=== PATIENT | male | born 1935 | race African-American/Black ===

== ENCOUNTER 2021-01-27 10:40 | Outpatient (CLI) | payer MEDICARE, MEDICAID | END 2021-01-27 10:41 | disposition home or self-care (01) | LOC: BICRAD 10:40 | PROVIDERS: ATTEND Specialist | DX: R53.83 Other fatigue (principal) | CPT/HCPCS: 71046 ==

== ENCOUNTER 2022-04-24 13:20 | Inpatient (IN) | payer OTHER, MEDICARE, MEDICAID ==
[2022-04-24] MEDS ORDERED: Morphine 4 MG/ML VIAL ONE (14:33)
[2022-04-24] MEDS ORDERED: Ondansetron PF 4 MG/2 ML Vial ONE (14:33)
[2022-04-24 14:52] LABS: #Eosinphils 0.3 thou/uL (0.0-0.7); #Lymphocytes 1.5 thou/uL (1.20-3.40); #Monocytes 0.5 thou/uL (0.11-0.59); #Neutrophils 3.6 thou/uL (1.40-6.50); %Basophils 0.2 % (0.0-1.0); %Lymphocytes 25.8 % (21.0-51.0); %Monocytes 8.2 % (0.0-10.0); %Neutrophils 60.7 % (42.0-75.0); Hemoglobin 12.6 g/dL (14.0-18.0); Mean Corpuscular HGB CONC 32.2 g/dL (32.0-36.0); Mean Corpuscular Hemoglobin 29.8 pg (27.0-31.0); Mean Corpuscular Volume 92.6 fl (78.0-98.0); Mean Platelet Volume 7.2 fL (7.4-10.4); Platelet Count 203 10x3/uL (130-400); RBC Distribution Width 12.2 % (11.5-14.5); Red Blood Cell (RBC) Count 4.24 mill/uL (4.70-6.10); White Blood Cell (WBC) Count 5.9 10x3/uL (4.8-10.8)
[2022-04-24 15:03] LABS: INR-International Normal Ratio 1.1; Prothrombin Time 14.8 sec (12.0-14.7)
[2022-04-24 15:23] LABS: ALT (SGPT) 22 U/L (8-55); AST (SGOT) 27 U/L (5-34); Albumin 3.9 g/dL (3.4-4.8); Alkaline Phosphatase 50 U/L (40-110); Anion Gap 12 mmol/L (10-20); BUN (Urea Nitrogen) 15 mg/dL (8.4-25.7); Bilirubin, Total 0.5 mg/dL (0.2-1.2); Calc. Creatinine Clearance 0 mL/min (70-130); Calcium 9.2 mg/dL (7.8-10.44); Carbon Dioxide 25 mmol/L (23-31); Chloride 107 mmol/L (98-107); Estimated GFR 85; Globulin 3.5 g/dL (2.4-3.5); Glucose 113 mg/dL (83-110); Lipase 25 U/L (8-78); Potassium 3.7 mmol/L (3.5-5.1); Protein, Total 7.4 g/dL (5.8-8.1); Sodium 140 mmol/L (136-145)
[2022-04-24] MEDS ORDERED: TETANUS, DIPHTHERIA TOX,ADULT (TDVAX) 0.5 ML VIAL IM ONE (15:27)
[2022-04-24] MEDS ORDERED: Ondansetron PF 4 MG/2 ML Vial IVP PRN (15:27)
[2022-04-24] MEDS ORDERED: hydrALAZINE 20 MG/ML VIAL SLOW IVP PRN (15:27)
[2022-04-24] MEDS ORDERED: Sodium Chloride 0.9% 1,000 ML IV SCH (15:30)
[2022-04-24] MEDS ORDERED: Cyclobenzaprine 10 MG TAB PO PRN (15:31)
[2022-04-24] MEDS ORDERED: traMADol HCl 50 MG TAB PO PRN (15:32)
[2022-04-24] MEDS ORDERED: Morphine 4 MG/ML VIAL SLOW IVP PRN (15:34)
[2022-04-24] MEDS ORDERED: Boostrix 0.5 ML (Tdap) VIAL (>/=7 yrs of age) ONE (16:30)
[2022-04-24] MEDS ORDERED: Acetaminophen 650 MG/20.3 ML UDCUP ONE (17:58)
[2022-04-24] MEDS ORDERED: Ketorolac Tromethamine 30 MG/ML VIAL ONE (17:58)
[2022-04-24] MEDS ORDERED: Acetaminophen 325 MG TAB PO SCH (18:00)
[2022-04-24] MEDS ORDERED: traMADol HCl 50 MG TAB PO SCH (18:00)
[2022-04-24] MEDS: Ketorolac Tromethamine 30 MG/ML VIAL IVP SCH ×2 (18:05→23:08)
[2022-04-24] MEDS: Acetaminophen 650 MG/20.3 ML UDCUP PO SCH ×2 (18:05→23:06)
[2022-04-24] MEDS ORDERED: Famotidine/PF 20 mg/2ml Vial ONE (21:00)
[2022-04-24] MEDS: Famotidine/PF 20 mg/2ml Vial SLOW IVP SCH (21:03)
[2022-04-24] MEDS: Senokot S 8.6-50 MG TAB PO SCH (22:31)
[2022-04-25 02:07] VITALS: BMI 18.9
[2022-04-25] MEDS: Acetaminophen 650 MG/20.3 ML UDCUP PO SCH ×3 (04:32→17:59)
[2022-04-25] MEDS: Ketorolac Tromethamine 30 MG/ML VIAL IVP SCH ×3 (04:35→17:59)
[2022-04-25 04:45] LABS: SARS-CoV-2 NAA Rapid Test Not Detected (NotDetected)
[2022-04-25 06:40] LABS: #Eosinphils 0.1 thou/uL (0.0-0.7); #Monocytes 0.5 thou/uL (0.11-0.59); #Neutrophils 4.3 thou/uL (1.40-6.50); %Eosinophils 1.1 % (0.0-10.0); %Lymphocytes 16.4 % (21.0-51.0); %Monocytes 8.4 % (0.0-10.0); %Neutrophils 74.1 % (42.0-75.0); Hemoglobin 11.4 g/dL (14.0-18.0); Mean Corpuscular HGB CONC 32.4 g/dL (32.0-36.0); Mean Corpuscular Hemoglobin 29.7 pg (27.0-31.0); Mean Corpuscular Volume 91.5 fl (78.0-98.0); Mean Platelet Volume 7.2 fL (7.4-10.4); Platelet Count 181 10x3/uL (130-400); RBC Distribution Width 12.2 % (11.5-14.5); Red Blood Cell (RBC) Count 3.84 mill/uL (4.70-6.10); White Blood Cell (WBC) Count 5.8 10x3/uL (4.8-10.8)
[2022-04-25 07:01] LABS: Anion Gap 13 mmol/L (10-20); BUN (Urea Nitrogen) 18 mg/dL (8.4-25.7); Calc. Creatinine Clearance 47 mL/min (70-130); Calcium 8.6 mg/dL (7.8-10.44); Carbon Dioxide 21 mmol/L (23-31); Chloride 110 mmol/L (98-107); Estimated GFR 86; Glucose 104 mg/dL (83-110); Potassium 3.8 mmol/L (3.5-5.1); Sodium 140 mmol/L (136-145)
[2022-04-25] MEDS: Famotidine/PF 20 mg/2ml Vial SLOW IVP SCH ×2 (08:06→20:04)
[2022-04-25] MEDS: Polyethylene Glycol 3350 17 GM Packet PO SCH (08:07)
[2022-04-25] MEDS: Saccharomyces boulardii 250 MG CAP PO SCH (08:07)
[2022-04-25] MEDS: Senokot S 8.6-50 MG TAB PO SCH ×2 (08:07→20:06)
[2022-04-25] MEDS ORDERED: FLU VACC QS2022-23(65YR UP)/PF 240 MCG/0.7 ML SYRINGE IM ONE (09:00)
[2022-04-25] MEDS ORDERED: Sodium Chloride 0.9% 1,000 ML IV SCH (10:45)
[2022-04-25] MEDS ORDERED: CEFAZOLIN 2 GM in Sodium Chloride 0.9% 100 ML IVPB SCH (13:00)
[2022-04-25] MEDS ORDERED: CEFAZOLIN 2 GM VIAL ONE (14:42)
[2022-04-25] MEDS ORDERED: Sodium Chloride 0.9% 100 ML ONE (14:42)
[2022-04-25] MEDS ORDERED: Fentanyl 100 MCG/2 ML VIAL ONE (16:47)
[2022-04-25] MEDS ORDERED: Lidocaine 1% PF 5 ML VIAL ONE (17:21)
[2022-04-25] MEDS ORDERED: Rocuronium Bromide 10 MG/ML (10ML VIAL) ONE (17:21)
[2022-04-25] MEDS ORDERED: Dexamethasone 20 MG/5 ML VIAL ONE (17:21)
[2022-04-25] MEDS ORDERED: Ondansetron PF 4 MG/2 ML Vial ONE (17:21)
[2022-04-25] MEDS ORDERED: PROPOFOL 200 MG/20 ML VIAL ONE (17:21)
[2022-04-25] MEDS ORDERED: Promethazine HCl 25 MG/ML VIAL IVPB PRN (18:27)
[2022-04-25] MEDS ORDERED: Ondansetron HCl/PF 4 MG/2 ML Vial IVP PRN (18:27)
[2022-04-25] MEDS ORDERED: Promethazine HCl 25 MG/ML VIAL IM PRN (18:27)
[2022-04-25] MEDS: Rosuvastatin 20 MG TAB PO SCH (20:05)
[2022-04-25] MEDS: CEFAZOLIN 2 GM in Sodium Chloride 0.9% 100 ML IVPB SCH (20:10)
[2022-04-25] MEDS: Latanoprost 0.005% Ophth Soln 2.5 ml Bottle EA EYE SCH ×2 (21:29→21:33)
[2022-04-25] MEDS: Timolol 0.5% Ophth Soln 5 ml Bottle EA EYE SCH ×2 (21:29→21:34)
[2022-04-25] MEDS ORDERED: Acetaminophen/Codeine 30-300mg Tablet PO PRN (22:37)
[2022-04-26] MEDS: Acetaminophen 650 MG/20.3 ML UDCUP PO SCH ×5 (01:59→22:06)
[2022-04-26] MEDS: CEFAZOLIN 2 GM in Sodium Chloride 0.9% 100 ML IVPB SCH ×2 (05:08→13:21)
[2022-04-26] MEDS ORDERED: Ibuprofen 200 MG TAB PO PRN (07:29)
[2022-04-26] MEDS: Senokot S 8.6-50 MG TAB PO SCH ×2 (08:26→20:20)
[2022-04-26] MEDS: Aspirin 81 mg Enteric Coated Tablet PO SCH ×2 (08:26→20:19)
[2022-04-26] MEDS: Timolol 0.5% Ophth Soln 5 ml Bottle EA EYE SCH ×2 (08:27→20:20)
[2022-04-26] MEDS: Saccharomyces boulardii 250 MG CAP PO SCH (08:27)
[2022-04-26] MEDS: Famotidine/PF 20 mg/2ml Vial SLOW IVP SCH ×2 (08:27→20:19)
[2022-04-26] MEDS: Polyethylene Glycol 3350 17 GM Packet PO SCH (08:27)
[2022-04-26] MEDS: Rosuvastatin 20 MG TAB PO SCH (20:18)
[2022-04-26] MEDS: Brimonidine Tartrate 0.2% Ophth Soln 5 ml Bottle EA EYE SCH (20:19)
[2022-04-26] MEDS: Latanoprost 0.005% Ophth Soln 2.5 ml Bottle EA EYE SCH (20:19)
[2022-04-27] MEDS: Acetaminophen 650 MG/20.3 ML UDCUP PO SCH ×3 (02:10→17:22)
[2022-04-27] MEDS: Senokot S 8.6-50 MG TAB PO SCH ×2 (08:14→21:50)
[2022-04-27] MEDS: Polyethylene Glycol 3350 17 GM Packet PO SCH (08:15)
[2022-04-27] MEDS: Saccharomyces boulardii 250 MG CAP PO SCH (08:18)
[2022-04-27] MEDS: Famotidine/PF 20 mg/2ml Vial SLOW IVP SCH ×2 (08:18→21:49)
[2022-04-27] MEDS: Aspirin 81 mg Enteric Coated Tablet PO SCH ×2 (08:18→21:48)
[2022-04-27] MEDS: Timolol 0.5% Ophth Soln 5 ml Bottle EA EYE SCH ×2 (08:19→21:50)
[2022-04-27] MEDS: Brimonidine Tartrate 0.2% Ophth Soln 5 ml Bottle EA EYE SCH ×2 (08:20→21:49)
[2022-04-27 17:11] VITALS: TEMP 98.1
[2022-04-27] MEDS: Latanoprost 0.005% Ophth Soln 2.5 ml Bottle EA EYE SCH (21:49)
[2022-04-27 21:50] VITALS: BP 110/68
[2022-04-27] MEDS: Rosuvastatin 20 MG TAB PO SCH (21:50)
== END 2022-04-27 21:03 | DRG 522 ==
LOC: ERS 13:20 → ERHOLD 15:14 → SURG A 21:46
PROVIDERS: ADMIT Surgery; ATTEND Surgery
PROC: 0SRR0JA Replacement of Right Hip Joint, Femoral Surface with Synthetic Substitute, Uncemented, Open Approach (ICD-10-PCS; principal; 2022-04-25)
DX: S72.001A Fracture of unspecified part of neck of right femur, initial encounter for closed fracture (principal); E78.00 Pure hypercholesterolemia, unspecified; W19.XXXA Unspecified fall, initial encounter; F17.220 Nicotine dependence, chewing tobacco, uncomplicated; Z20.822 Contact with and (suspected) exposure to COVID-19; Z88.8 Allergy status to other drugs, medicaments and biological substances; Y92.524 Gas station as the place of occurrence of the external cause
CPT/HCPCS: 36415; 71045; 72170; 80048; 80053; 83690; 84146; 85025; 85610; 85730; 90714; 90715; 93005; 96374; 96375; C1713; C1776; G0390; J1100; J1885; J2270; J2405; J2704; J3010; J3490; J7050; S0028; U0002